=== PATIENT | male | born 1985 | race Caucasian/White ===

== ENCOUNTER 2023-11-06 13:34 | Emergency (ER) | payer OTHER, SELFPAY ==
[2023-11-06 13:40] VITALS: BP 165/94; PULSE 102; TEMP 36.8; O2SAT 95; O2SAT 96; BMI 36.9
[2023-11-06 13:42] VITALS: O2SAT 96
--- NOTE | 2023-11-06 13:42 | CT_ITS ---
The [address] [address] Patient Name: MANNY ARGUELLO MRN: [id number] date: 1985 Sex: M Assigned Patient Location: ED.MAIN Current Patient Location: Accession/Order Number: [id number] Exam Date: 11/06/2023 14:30 Report Date: 11/06/2023 14:53 At the request of: MARINA RAO Procedure: CT head/brain wo con EXAMINATION: CT head/brain wo con HISTORY: Headache, elevated blood pressure COMPARISON: No relevant comparison available. TECHNIQUE: Axial CT images were obtained without IV contrast. Dose reduction techniques were achieved by using automated exposure control and/or adjustment of mA and/or kV according to patient size and/or use of iterative reconstruction technique. FINDINGS: BRAIN: No edema, hemorrhage, mass, acute infarction, or inappropriate atrophy. CSF SPACES: No hydrocephalus, subarachnoid hemorrhage, or mass. Appropriate for age. SKULL: No fracture, mass, or other significant visible lesion. SINUSES: No significant mucosal thickening or fluid on the limited views. ORBITS: No appreciable abnormality on the limited views. OTHER: Negative CT/CT head/brain wo con IMPRESSION: 1. No abnormal or suspicious findings of the brain. Electronically authenticated by: LASHA MONTERO Date: 11/06/2023 14:53
--- NOTE | 2023-11-06 13:42 | ED_ITS ---
HPI HPI - General Adult General Chief complaint: Headache Stated complaint: HEADACHE Time Seen by Provider: 11/06/23 13:38 Source: patient Mode of arrival: walk-in Limitations: no limitations History of Present Illness HPI narrative: 38-year-old male presents to the emergency department for bitemporal headache which began this morning when he awoke. No trauma fever or stiff neck. He has a history of hypertension and is on valsartan and has not missed any doses. No unusual activity yesterday. No weakness or numbness or vomiting. The pain is moderate and continuous. Related Data Home Medications ?Medication ?Instructions ?Recorded ?Confirmed omeprazole 20 mg capsule,delayed 20 mg PO DAILY 11/06/23 11/06/23 release valsartan 160 mg tablet (Diovan) 160 mg PO DAILY 11/06/23 11/06/23 Previous Rx's ?Medication ?Instructions ?Recorded xfrangdfzb-dslgxgnlsvpyz-ggqzsiwt 1 cap PO Q6H PRN pain 5 days #20 11/06/23 50 mg-300 mg-40 mg capsule caps (Fioricet) Allergies Allergy/AdvReac Type Severity Reaction Status Date / Time No Known Drug Allergies Allergy Verified 11/06/23 13:39 Opioid HPI Opioid Management Most Recent Opioid Data: Last Pain Scale 0 11/06/23 15:00 Last ED Pain Assessment 11/06/23 15:00 Last MAR Pain Assessment 11/06/23 14:46 Review of Systems ROS Narrative A ten point review of systems is negative except as noted above. Exam Narrative Exam Narrative: Nurses note and vital signs reviewed and patient is not hypoxic. General: The patient appears well and in no apparent distress. Patient is resting comfortably on cart. Skin: Warm, dry, no pallor noted. There is no rash noted. Head: Normocephalic, atraumatic, neck supple, no nuchal rigidity Eye: Normal conjunctiva, no drainage Ears, Nose, Mouth, and Throat: oral mucosa is moist. Nares patent. Cardiovascular: Regular Rate and Rhythm Respiratory: Patient is in no distress, no accessory muscle use, lungs are cl ear to auscultation, no wheezing, rales or rhonchi Back: non-tender GI: Soft and nontender Musculoskeletal: The patient has no evidence of calf tenderness, no pitting edema, symmetrical pulses noted bilaterally Neurological: A&O, normal speech Psychiatric: Cooperative Constitutional Vital Signs, click to edit/add: Last Vital Signs Temp 98.3 F 11/06/23 13:40 Pulse 91 H 11/06/23 14:03 Resp 15 11/06/23 14:03 BP 139/67 11/06/23 13:58 Pulse Ox 96 11/06/23 13:42 O2 Del Method Room Air 11/06/23 13:40 Course Vital Signs Vital signs: Vital Signs Temperature 98.3 F 11/06/23 13:40 Pulse Rate 102 H 11/06/23 13:40 Respiratory Rate 16 11/06/23 13:40 Blood Pressure 165/94 H 11/06/23 13:40 Pulse Oximetry 95 11/06/23 13:40 Oxygen Delivery Method Room Air 11/06/23 13:40 Temperature 98.3 F 11/06/23 13:40 Pulse Rate 91 H 11/06/23 14:03 Respiratory Rate 15 11/06/23 14:03 Blood Pressure 139/67 11/06/23 13:58 Pulse Oximetry 96 11/06/23 13:42 Oxygen Delivery Method Room Air 11/06/23 13:40 Medical Decision Making MDM Narrative Medical decision making narrative: CT and blood work is negative. Blood pressure normalized and his headache is nearly completely gone after being given Toradol and Solu-Medrol. Treatment and follow-up were discussed with the patient. Differential Diagnosis Differential Diagnosis: Uncontrolled blood pressure, sinus infection, nonspecific headache Lab Data Lab results reviewed: Yes I reviewed the patient's lab results Labs: Lab Results 11/06/23 Range/Units 13:46 WBC 10.0 (4.0-11.0) 10^3/uL RBC 5.19 (4.70-6.10) 10^6/uL Hgb 16.0 (14.0-18.0) g/dL Hct 47.0 (42.0-54.0) % MCV 90.6 (80.0-94.0) fL MCH 30.8 (25.9-34.0) pg MCHC 34.0 (29.9-35.2) g/dL RDW 13.0 (11.0-15.0) % Plt Count 305 (150-450) 10^3/uL MPV 10.4 (9.5-13.5) fL Neut % (Auto) 83.8 H (43.0-75.0) % Lymph % (Auto) 11.7 L (20.5-60.0) % Spencer % (Auto) 3.2 (1.7-12.0) % Eos % (Auto) 0.5 L (0.9-7.0) % Baso % (Auto) 0.5 (0.2-2.0) % Neut # (Auto) 8.3 H (1.4-6.5) 10^3/uL Lymph # (Auto) 1.2 (1.2-3.8) 10^3/uL Spencer # (Auto) 0.3 (0.3-0.8) 10^3/uL Eos # (Auto) 0.1 (0.0-0.7) 10^3/uL Baso # (Auto) 0.1 (0.0-0.1) 10^3/uL Abs Immat Gran (auto) 0.03 (0.00-0.03) 10^3/uL Imm/Tot Granulo (auto) 0.3 (0.0-0.5) % Sodium 143 (136-145) mmol/L Potassium 4.4 (3.5-5.1) mmol/L Chloride 105 (98-107) mmol/L Carbon Dioxide 28.2 (21.0-32.0) mmol/L Anion Gap 14.2 BUN 10.0 (7.0-18.0) mg/dL Creatinine 1.16 (0.70-1.30) mg/dL Est GFR ( Amer) >60 (>=60) Est GFR (Non-Af Amer) >60 (>=60) BUN/Creatinine Ratio 8.6 Glucose 111 H (74-106) mg/dL Calcium 9.2 (8.5-10.1) mg/dL Imaging Data CT scan - head: Radiologist's impression: ITS Impressions Head CT 11/06/23 13:42 IMPRESSION: 1. No abnormal or suspicious findings of the brain. Electronically authenticated by: LASHA MONTERO Date: 11/06/2023 14:53 Discharge Plan Discharge Stand Alone Forms: Portal Instructions Chief Complaint: Headache Clinical Impression: Headache Patient Disposition: Home, Self-Care Time of Disposition Decision: 15:12 Condition: Good Mode of Transportation: Private Vehicle Prescriptions / Home Meds: New imbthiviuw-dxfijcmkyluie-gioz [Fioricet] 50-300-40 mg capsule 1 cap PO Q6H PRN (Reason: pain) 5 Days Qty: 20 0RF No Action valsartan [Diovan] 160 mg tablet 160 mg PO DAILY omeprazole 20 mg capsule,delayed release(DR/EC) 20 mg PO DAILY Print Language: Belgian Instructions: Acute Headache (ED) Referrals: EMIGDIO SOUSA [Primary Care Provider] - 1 week
--- NOTE | 2023-11-06 13:42 | ECG_ITS ---
The [facility] [place] Test Date: 2023-11-06 Pat Name: MANNY ARGUELLO Department: Room: - Gender: Male [employer]: : 1985 Requested By: [id number] Order Number: [id number] Reading MD: DAVID SIBLEY Measurements Intervals [place] Rate: 92 P: 56 NC: 172 QRS: -1 QRSD: 98 T: 43 QT: 352 QTc: 401 Interpretive Statements 1100 Sinus rhythm 2420 RSR (QR) in lead V1/V2, consistent with right ventricular conduction delay Electronically Signed On 11-07-2023 6:49:00 EDT by DAVID SIBLEY
[2023-11-06 13:58] VITALS: BP 139/67
[2023-11-06 13:58] LABS: Basophils Absolute Auto 0.1 10^3/uL (0.0-0.1); Basophils Percent Auto 0.5 % (0.2-2.0); Eosinophils Absolute Auto 0.1 10^3/uL (0.0-0.7); Eosinophils Percent Auto 0.5 % (0.9-7.0); Immature Granulocytes Abs Auto 0.03 10^3/uL (0.00-0.03); Immature Granulocytes Pct Auto 0.3 % (0.0-0.5); Lymphocytes Absolute Auto 1.2 10^3/uL (1.2-3.8); Lymphocytes Percent Auto 11.7 % (20.5-60.0); Mean Corpuscular Hemoglobin 30.8 pg (25.9-34.0); Mean Corpuscular Volume 90.6 fL (80.0-94.0); Mean Platelet Volume 10.4 fL (9.5-13.5); Monocytes Absolute Auto 0.3 10^3/uL (0.3-0.8); Monocytes Percent Auto 3.2 % (1.7-12.0); Neutrophils Absolute Auto 8.3 10^3/uL (1.4-6.5); Neutrophils Percent Auto 83.8 % (43.0-75.0); Platelet Count 305 10^3/uL (150-450); Red Blood Count 5.19 10^6/uL (4.70-6.10)
[2023-11-06 14:03] VITALS: PULSE 91; PULSE 92
[2023-11-06 14:04] VITALS: PULSE 93
[2023-11-06 14:06] LABS: Anion Gap 14.2; BUN Creatinine Ratio 8.6; Calcium 9.2 mg/dL (8.5-10.1); Carbon Dioxide 28.2 mmol/L (21.0-32.0); Chloride 105 mmol/L (98-107); Estimated GFR (African America >60 (>=60); Estimated GFR (Non-African Ame >60 (>=60); Glucose 111 mg/dL (74-106); Potassium 4.4 mmol/L (3.5-5.1); Sodium 143 mmol/L (136-145)
[2023-11-06] MEDS: KETOROLAC TROMETHAMINE 30 MG/ML VIAL IVP (14:46)
[2023-11-06] MEDS: METHYLPREDNISOLONE SOD SUCC PF 125 MG/2 ML VIAL IVP (14:47)
[2023-11-06 15:11] VITALS: BP 159/93
== END 2023-11-06 15:22 | disposition home or self-care (01) ==
PROVIDERS: Emergency Provider Emergency Medicine; PCP Family Medicine
DX: R51.9 Headache, unspecified (principal); I10 Essential (primary) hypertension; Z79.899 Other long term (current) drug therapy
CPT/HCPCS: 36415; 70450; 80048; 85025; 93005; 99284; J1885; J2919